=== PATIENT | female | born 1975 | race Caucasian/White ===

== ENCOUNTER → 2017-03-31 | Outpatient (CLI) | payer MEDICARE ==
[~2017-03-31] MED LIST: AMLODIPINE-BEN1 EACH PO; AMOXICILLIN PO; BACLOFEN10 MG PO; BENTYL20 MG DOB; DESYREL100 MG PO; MOBIC15 MG PO; OXYCODONE-APAP1 EAC5 PO; PAXIL40 MG PO; PHENERGAN25 M1 PO; PRILOSEC20 M1 PO; ZANTAC300 MG PO
--- NOTE | ~2017-03-31 | CR63 ---
[facility] A Service of [facility] & [facility] RADIOLOGY TEXT RESULTS PATIENT: MICAELA HERNÁNDEZ LOCATION: [facility] : 71 UNIT #: [id number] AGE: [address]: Sommer Curry MD SEX: F ORDER DR: [id number] [facility] [address] [place], [place] [address] [id number] O MR#: [id number] Acc #: [id number] NAME: MICAELA HERNÁNDEZ : 1975 SEX: F STUDY DATE/TIME: 03/31/2017 14:49 UNIT: [facility] ROOM: STUDY DESCRIPTION: CR Chest 2 View Attending Physician: Sommer Curry M.D. Referring Physician: Sommer Curry M.D. Ordering Physician: Sommer Curry M.D. Primary Care Physician: Saurav Boyer M.D. MEDICAL IMAGING REPORT This report is preliminary unless electronic signature is present EXAM Chest, PA and lateral, 03/31/17. HISTORY Follow up upper respiratory infection, high-risk medication, yearly follow up for Humira use for Crohn's disease. Benign essential hypertension. FINDINGS PA and lateral examination of the chest upright shows a good expansion of the parenchyma with a normal distribution of the pulmonary vascularity. There is no indication of congestion, effusion, infiltrate, tumor, or nodular density. The pleural reflections and diaphragmatic contours are normal. The cardiac silhouette and mediastinal anatomy is within normal limits. IMPRESSION Normal chest. Dictated by... Geoffrey Hunt M.D. THIS IS AN ELECTRONICALLY VERIFIED REPORT Geoffrey Hunt M.D. at 04/01/2017 6:17 AM THANIA/cristy TD: 03/31/2017 16:36 JOB #: [id number] MEDICAL IMAGING REPORT Page 1 of 1 COPY
== END | disposition home or self-care (01) ==
LOC: CRAD 14:21
DX: K50.90 Crohn's disease, unspecified, without complications (principal); Z79.899 Other long term (current) drug therapy; Z88.8 Allergy status to other drugs, medicaments and biological substances
CPT/HCPCS: 71020; 72125; 72131

== ENCOUNTER 2017-05-15 03:45 | Emergency (ER) | payer MEDICARE ==
[~2017-05-15] VITALS: Ht 175.3 cm; Wt 86.2 kg
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
== END 2017-05-15 04:37 | disposition home or self-care (01) ==
LOC: CED 03:45
DX: S60.221A Contusion of right hand, initial encounter (principal); I10 Essential (primary) hypertension; F17.200 Nicotine dependence, unspecified, uncomplicated; Z79.899 Other long term (current) drug therapy; Z88.8 Allergy status to other drugs, medicaments and biological substances; Y04.0XXA Assault by unarmed brawl or fight, initial encounter
CPT/HCPCS: 73130; 99283

== ENCOUNTER 2017-05-27 19:31 | Emergency (ER) | payer MEDICARE ==
[~2017-05-27] VITALS: Ht 175.3 cm; Wt 86.2 kg
--- NOTE | ~2017-05-27 | EKG ---
PATIENT: MICAELA HERNÁNDEZ UNIT #: [id number] Ventricular Rate: 91 BPM Atrial Rate: 91 BPM P-R Interval: 154 ms QRS Duration: 96 ms Q-T Interval: 380 ms QTC Calculation(Bezet): 467 ms P Everett: 65 degrees Calculated R Everett: 81 degrees Calculated T Everett: 60 degrees Diagnosis Line: Normal sinus rhythm Diagnosis Line: Biatrial enlargement Diagnosis Line: Abnormal ECG Diagnosis Line: When compared with ECG of 03-JUN-2013 03:34, Diagnosis Line: No significant change was found Diagnosis Line: Confirmed by ANY ROBLES MD ([id number]) on 05/28/2017 Diagnosis Line: 4:51:22 PM INTERPRETING MD: TRAVIS SMITH
--- NOTE | ~2017-05-27 | CR72 ---
[facility] A Service of [facility] & [facility] RADIOLOGY TEXT RESULTS PATIENT: MICAELA HERNÁNDEZ LOCATION: [facility] : 71 UNIT #: [id number] AGE: [address]: Racheal Castanon MD SEX: F ORDER DR: [id number] [facility] [address] [place], [place] [address] [id number] E MR#: [id number] Acc #: [id number] NAME: MICAELA HERNÁNDEZ : 1975 SEX: F STUDY DATE/TIME: 05/27/2017 20:35 UNIT: [facility] ROOM: STUDY DESCRIPTION: CR Chest Single View Portable Attending Physician: Racheal Castanon M.D. Ordering Physician: Ed Avi Morgan M.D. Primary Care Physician: Saurav Boyer M.D. MEDICAL IMAGING REPORT This report is preliminary unless electronic signature is present EXAM Chest x-ray single-view portable. HISTORY Chest pain radiates to left arm and neck with nausea for 2 weeks, but worse last night. History of essential hypertension. COMMENT Single frontal portable view chest timed 20:35 on 05/27/2017. COMPARISON Compared to 03/31/2017. FINDINGS Cardiac silhouette size is normal. No acute infiltrate, acute congestive failure, pleural effusion or pneumothorax. IMPRESSION No active disease. Dictated by... Ana Rosa Aly M.D. THIS IS AN ELECTRONICALLY VERIFIED REPORT Ana Rosa Aly M.D. at 05/28/2017 10:25 AM SAC/gz TD: 05/28/2017 08:39 JOB #: [id number] MEDICAL IMAGING REPORT Page 1 of 1 COPY
[2017-05-27 20:35] LABS: BASOPHIL# 0.1 X10e3 (0-0.3); BASOPHIL% 1.3 % (0-2.5); EOSINOPHIL# 0.1 X10e3 (0-0.7); EOSINOPHIL% 1.2 % (0.0-7.0); HEMATOCRIT 44.7 % (35.0-45.0); HEMOGLOBIN 14.8 gm/dL (12.0-16.0); LYMPHOCYTE# 3.1 X10e3 (1.0-3.5); LYMPHOCYTE% 27.9 % (17.0-45.0); MEAN CELL VOLUME 91.3 FL (83-96); MEAN CORPUSCULAR HEMOGLOBIN 30.2 PG (28-34); MEAN CORPUSCULAR HGB CONC 33.1 g/dL (30-36); MEAN PLATELET VOLUME 8.2 FL (6.5-11.5); MONOCYTE# 0.7 X10e3 (0-1.0); MONOCYTE% 6.4 % (3.0-12.0); NEUTROPHIL# 6.9 X10e3 (1.5-7.1); NEUTROPHIL% 63.2 % (40-75); PLATELET COUNT 306 X10e3 (140-420); RED BLOOD COUNT 4.89 X10e (3.90-5.30); RED CELL DISTRIBUTION WIDTH 13.7 % (11.0-15.5)
[2017-05-27 20:37] LABS: DIFF IND NO
[2017-05-27 20:47] LABS: INR 0.9; PROTHROMBIN TIME (PATIENT) 10.3 SECONDS (10.0-11.7)
[2017-05-27 20:58] LABS: ALBUMIN SERUM 4.3 g/dL (3.5-5.0); ALKALINE PHOSPHATASE 58 U/L (32-92); ALT (SGPT) 16 U/L (10-40); AST (SGOT) 16 U/L (10-42); BILIRUBIN,TOTAL 0.1 mg/dL (0.2-2.0); BLOOD UREA NITROGEN 18 mg/dL (9-23); CALCIUM SERUM 8.9 mg/dL (8.4-10.2); CARBON DIOXIDE 19 mmol/L (22-31); CHLORIDE 102 mmol/L (100-111); CREATININE SERUM 0.9 mg/dL (0.6-1.4); GLOM FILT RATE Estimated 78.4 mL/min (>60); GLUCOSE FASTING 94 mg/dL (70-110); POTASSIUM 3.8 mmol/L (3.5-5.1); PROTEIN TOTAL SERUM 7.8 g/dL (6.0-8.3); SODIUM 133 mmol/L (135-145)
[2017-05-27 20:59] LABS: BILIRUBIN, DIRECT <0.1 mg/dL (0.0-0.2)
[2017-05-27 21:23] LABS: POC - TROPONIN <0.05 ng/mL (<=0.05)
[2017-05-28 00:21] LABS: POC - CKMB <1.0 ng/mL (0.0-7.9); POC - TROPONIN <0.05 ng/mL (<=0.05)
== END 2017-05-28 00:52 | disposition home or self-care (01) ==
LOC: CED 19:31
PROVIDERS: Emergency Medicine
DX: R07.2 Precordial pain (principal); E11.9 Type 2 diabetes mellitus without complications; I10 Essential (primary) hypertension; F17.210 Nicotine dependence, cigarettes, uncomplicated; F32.9 Major depressive disorder, single episode, unspecified; F41.9 Anxiety disorder, unspecified; Z88.1 Allergy status to other antibiotic agents
CPT/HCPCS: 36415; 71010; 80048; 80076; 82553; 84484; 85025; 85610; 85730; 93005; 99285